=== PATIENT | male | born 1995 | race Caucasian/White ===

== ENCOUNTER 2017-07-02 02:14 | Emergency (ER) | payer SELFPAY ==
[2017-07-02 02:44] VITALS: BP 116/68; PULSE 77; RESP 16; TEMP 97.5; O2SAT 98
--- NOTE | 2017-07-02 02:51 | ED PDOC ---
HPI: Wound Care - HPI Time Seen by Provider: 07/02/17 02:32 Chief Complaint (Nursing): Abnormal Skin Integrity Chief Complaint (Provider): scalp laceration History Per: Patient Additional Complaint(s): 22-year-old male with no past medical history presents with scalp laceration sustained when a ceramic cup fell on top of his head. Patient did not sustain loss of consciousness. He states tetanus is up-to-date. He has mild localized pain to area of laceration. He denies any dizziness, vision changes, nausea or vomiting. PMD: none Past Medical History Reviewed: Historical Data, Nursing Documentation, Vital Signs Vital Signs: Last Vital Signs Temp 97.5 F L 07/02/17 02:36 Pulse 77 07/02/17 02:36 Resp 16 07/02/17 02:36 BP 116/68 07/02/17 02:36 Pulse Ox 98 07/02/17 02:36 - Medical History PMH: No Chronic Diseases - Surgical History Surgical History: No Surg Hx - Family History Family History: States: No Known Family Hx - Living Arrangements Living Arrangements: With Family - Social History Current smoker - smoking cessation education provided: No Alcohol: None Drugs: Denies - Immunization History Hx Tetanus Toxoid Vaccination: Yes - Allergies Allergies/Adverse Reactions: Allergies Allergy/AdvReac Type Severity Reaction Status Date / Time No Known Allergies Allergy Verified 07/02/17 02:44 Review of Systems ROS Statement: Except As Marked, All Systems Reviewed And Found Negative Skin: Positive for: Other (scalp laceration) Neurological: Positive for: Other (head injury with no LOC) Physical Exam - Reviewed Nursing Documentation Reviewed: Yes Vital Signs Reviewed: Yes - Physical Exam Appears: Positive for: Well, Non-toxic, No Acute Distress Head Exam: Negative for: ATRAUMATIC (2 cm superficial laceration noted to right parietal lobe with minimal active bleeding, no surrounding soft tissue swelling , head is otherwise atraumatic and normocephalic) Skin: Positive for: Normal Color Eye Exam: Positive for: Normal appearance, EOMI, PERRL ENT: Positive for: Normal ENT Inspection Neck: Positive for: Normal Neurologic/Psych: Positive for: Alert, Oriented, Gait (steady) - ECG O2 Sat by Pulse Oximetry: 98 Pulse Ox Interpretation: Normal Procedure: Wound Repair - Time Performed Time Performed: 02:54 - Time Out Time Out: Side verified, Site verified, Patient ID confirmed, Sterile procedures obs. - Procedure Procedure: Wound Repair: scalp laceration - Consent Obtained Consent obtained: Verbal - Performed by Performed by: Mid-level Provider - Indications Indication(s):: Laceration - Location Location:: Right (parietal), Scalp Shape:: Linear Dimensions Length cm: 2 Depth:: Epidermis - Debris Debris:: None - Complexity Complexity:: Simple (one layer) - Wound repair method Sutures:: # (2 antoine) - Muscle repiar layer closed with Muscle repair layer closed with:: Wound well approximated, Abx ointment applied , Tetanus up to date - Complications Complications: none - Patient tolerated procedure Patient Tolerated Procedure:: Well Medical Decision Making Medical Decision Makin22 year old with scalp laceration Patient with minor scalp laceration, no loss of consciousness sustained. Tetanus is up to date. Patient agreed to staple repair of laceration. He declined injection of anesthesia prior to repair. Please see procedure note. Patient given Tylenol dosing ED. Wound care instructions provided. Disposition - Clinical Impression Clinical Impression: Scalp laceration, Minor head injury without loss of consciousness - Patient ED Disposition Is Patient to be Admitted: No Counseled Patient/Family Regarding: Diagnosis, Need For Followup - Disposition Referrals: [facility] [Outside] Disposition: Routine/Home Disposition Time: 02:46 Condition: STABLE Additional Instructions: Tylenol every 4-6 hours for pain as needed. Keep area clean and dry. Wound check 2-3 days, staple removal 10 days. Instructions: Staple Care (ED), Laceration (ED), Head Injury (ED)
== END 2017-07-02 02:55 | disposition home or self-care (01) ==
LOC: H.ER 02:14
DX: S01.01XA Laceration without foreign body of scalp, initial encounter (principal); W26.8XXA Contact with other sharp object(s), not elsewhere classified, initial encounter; Y92.89 Other specified places as the place of occurrence of the external cause